=== PATIENT | male | born 2000 | race Caucasian/White ===

== ENCOUNTER → 2025-08-30 19:49 | Outpatient (BNV) | payer OTHER, SELFPAY | PROVIDERS: Visit Provider Radiology Diagnostic Ultrasound | DX: M75.32 Calcific tendinitis of left shoulder (principal) | CPT/HCPCS: 73221 ==

== ENCOUNTER 2025-08-30 19:52 | Outpatient (REF) | payer OTHER, SELFPAY ==
--- NOTE | ~2025-08-30 | MR_ITS ---
EXAMINATION: MR SHOULDER WITHOUT CONTRAST, LEFT CLINICAL INFORMATION: Pain COMPARISON: None available. TECHNIQUE: MRI of the shoulder without contrast was performed on a high-field scanner. FINDINGS: ROTATOR CUFF: Mild tendinosis of the posterior fibers of the supraspinatus and anterior fibers infraspinatus. No measurable tear. Teres minor is intact. Mild subscapularis tendinosis. No muscle atrophy or fatty infiltration. BICEPS: Intact CORACOACROMIAL ARCH: The undersurface of the acromion is curved with no subacromial spur. The acromioclavicular joint is normal. LABRUM/CAPSULE: No displaced labral tear is seen. Inferior capsule is intact. GLENOHUMERAL JOINT/MARROW: No fracture. No aggressive marrow replacing lesion. No significant joint effusion. No high-grade chondral loss. No axillary lymphadenopathy. MR/MR shoulder LT wo con IMPRESSION: *Mild tendinosis of the posterior fibers of the supraspinatus and anterior fibers infraspinatus. No measurable tear is seen. *Mild subscapularis tendinosis. Electronically signed by: Alphonso Corley MD 09/02/2025 09:45 AM FLORINDA
--- OUTSIDE RECORDS SUMMARY | 2025-08-30 19:54 | XMS_ITS | Clinical Summary ---
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 Not on sherwin e 2024 Are you concerned about learning? Not on file 2024 No 2024 No 2024 Digital Access Answer Date Recorded No 2024 No 2024 Reliable internet access at home? Not on file 2024 Device with a working camera? Not on file Sex and Gender Information Value Date Recorded Sex Assigned at Not on file Legal Sex Male 8:37 AM EST Gender Identity Not on file Sexual Orientation Not on file Plan of Treatment Health Maintenance Due Date Last Done Comments Adult Td,Tdap Booster 2002 DEPRESSION SCREENING 2014 SMOKING Hx and SMOKELESS TOB ACCO SCREENING 12/20/2015 HPV VACCINES (1 - Male 3-dos e series) 2017 MENINGOCOCCAL VACCINES (B) ( 1 of 2 - Standard) 2018 HEPATITIS C SCREENING 2020 HIV ONE-TIME SCREENING (18-6 5 YEARS) 2020 INFLUENZA VACCINE (#1) 2025 COVID-19 VACCINE ( - 2024-2 6 season) 2025 HEPATITIS A VACCINES Aged Out No long er eligible based on patient's age to complete this topic HIB VACCINES Aged Out No longer eligi ble based on patient's age to complete this topic MENINGOCOCCAL VACCINES (ACWY) Aged Out No longer eligible based on patient's age to complete this topic PNEUMOCOCCAL VACCINES (0-49 years) Aged Out No longer eligible based on patient's age to complete this topic Medical Devices Not on file Insurance [employer]IG[employer] PPO CIGNA PPO CIGNA PPO CIGNA PPO CIGNA PPO CIGNA PPO Care Teams Prec[employer] 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 It is not the complete legal health record.[facility]
== END 2025-08-30 19:53 | disposition home or self-care (01) ==
LOC: HO.MRI 19:52
PROVIDERS: Visit Provider Family Medicine
DX: S49.92XA Unspecified injury of left shoulder and upper arm, initial encounter (principal)
CPT/HCPCS: 73221

== ENCOUNTER 2025-09-02 13:45 | Outpatient (AMB) | payer OTHER, SELFPAY ==
--- NOTE | 2025-09-02 13:45 | MHC.OFFVIS ---
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 He received a blow to his left shoulder and did not think much of it at the time but as he continued playing he is unable to throat without pain. He is right-handed. He subsequently got an MRI in his here today for evaluation. He describes pain in the posterior aspect of the left shoulder. Denies numbness and tingling. Physical Exam Exam Exam: Left shoulder with full range of motion and positive Isabela's. Mildly positive crank. Negative empty can. Negative lift-off. Negative impingement. Results Reviewed Results Reviewed: I personally reviewed the MR images. *Mild tendinosis of the posterior fibers of the supraspinatus and anterior fibers infraspinatus. No measurable tear is seen. *Mild subscapularis tendinosis. Assessment & Plan Assessment & Plan (1) Internal derangement of left shoulder: Code(s): M24.812 - Other specific joint derangements of left shoulder, not elsewhere classified Category: Medical Plan: MRI is impressive. Exam consistent with internal derangement left shoulder with irritation. I think PT and activity modification coupled with time should resolve this issue. We will abstain from playing competitively for the remainder of the season. I can not identify anything that would be amenable to surgical fixation. Continue to evaluate and treat symptomatically. Coding Level of Care Code New Pt Level 3 (99348) Diagnoses Internal derangement of left shoulder M24.812
--- OUTSIDE RECORDS SUMMARY | 2025-09-02 18:34 | XMS_ITS | Clinical Summary ---
Author Organization [facility] Address [address] [place] [phone] Phone Care Team Providers Care Jailer Chief Name Role Phone Nahun Krishnamurthy DO Primary Care Provider [phone] Medications No known medications Active Problems No [...] on file Insurance [employer]IG[employer] PPO CIGNA PPO Member Subscriber Plan / Payer (Ef fective 2023-Present) Name:Balaji Hung Relation to Subscriber:Self Name:Balaji Hung Payer ID:[id number] ([facility]) Type:PPO Address: [place] [address] CIGNA PPO Member Subscriber Plan / Payer (Ef fective 2023-Present) Name:Balaji Hung Relation to Subscriber:Self Name:Balaji Hung Payer ID:[id number] ([facility]) Type:PPO Address: [id number] [place] [address] CIGNA PPO Member Subscriber Plan / Payer (Ef fective 2023-Present) Name:Balaji Hung Relation to Subscriber:Self Name:Balaji Hung Payer ID:[id number] ([facility]) Type:PPO Address: [id number] [place], [place] [id number] CIGNA PPO Member Subscriber Plan / Payer (Ef fective 2023-Present) Name:Balaji Hung Relation to Subscriber:Self Name:Anabell Balaji Payer ID:[id number] ([facility]) Type:PPO Address: [id number] [place] [id number] CIG[employer] PPO Member Subscriber Plan / Payer (Ef fective 2023-Present) Name:Balaji Hung Relation to Subscriber:Self Name:Balaji Hung Payer ID:[id number] ([facility]) Type:PPO Address: [phone] [place] [address] Care Teams Jailer Chief Relationship Specialty Start Date End Date Nahun Krishnamurthy DO [address] [place] [phone] [email or web address] PCP - General Family Medicine 12/04/24 Additional Source Comments The information contained in this document represents components of the legal health record. It is not the complete legal health record.[facility]
== END 2025-09-02 13:46 | disposition home or self-care (01) ==
LOC: HO.HMGUMF 13:45
PROVIDERS: Visit Provider Orthopaedic Surgery
DX: M24.812 Other specific joint derangements of left shoulder, not elsewhere classified (principal)
CPT/HCPCS: 99203